=== PATIENT | female | born 1950 | race Caucasian/White ===

== ENCOUNTER → 2017-01-23 | Day surgery (SDC) | payer MEDICARE, OTHER ==
[~2017-01-23] VITALS: Ht 149.9 cm; Wt 102.5 kg
[2017-01-23 09:04] LABS: HCT 37.9 % (37.0-47.0); HGB 12.3 g/dl (12.5-16.0); MCH 31.7 pg (25.0-31.0); MCHC 32.5 g/dL (32.0-36.0); MCV 97.7 fL (78.0-100.0); MPV 10.2 fL (6.0-9.5); RBC 3.88 M/uL (4.20-5.40); RDW 15.4 % (11.5-14.0); WBC 11.3 K/uL (4.0-10.5)
[2017-01-23 09:06] LABS: ALBUMIN 3.9 g/dL (3.4-4.8); BILIRUBIN - TOTAL 0.6 mg/dL (0.1-1.0); CREATININE 0.6 mg/dL (0.5-1.0); GLOBULIN (CALCULATION) 3.2 g/dL (2.2-4.2); POTASSIUM 3.9 mmol/L (3.5-5.1); TOTAL PROTEIN 7.1 g/dL (6.4-8.3)
== END | disposition home or self-care (01) ==
LOC: FAS 08:25
PROVIDERS: Surgery
DX: Z12.11 Encounter for screening for malignant neoplasm of colon (principal); K57.30 Diverticulosis of large intestine without perforation or abscess without bleeding; K58.9 Irritable bowel syndrome, unspecified; D64.9 Anemia, unspecified; I10 Essential (primary) hypertension; I42.2 Other hypertrophic cardiomyopathy; E78.5 Hyperlipidemia, unspecified; J45.909 Unspecified asthma, uncomplicated; J44.0 Chronic obstructive pulmonary disease with (acute) lower respiratory infection; J20.9 Acute bronchitis, unspecified; G47.30 Sleep apnea, unspecified; F41.8 Other specified anxiety disorders; E66.9 Obesity, unspecified; Z68.42 Body mass index [BMI] 45.0-49.9, adult; M19.90 Unspecified osteoarthritis, unspecified site; M85.80 Other specified disorders of bone density and structure, unspecified site; Z99.89 Dependence on other enabling machines and devices; Z88.0 Allergy status to penicillin; Z88.5 Allergy status to narcotic agent; Z91.040 Latex allergy status; Z98.41 Cataract extraction status, right eye; Z98.42 Cataract extraction status, left eye; Z96.659 Presence of unspecified artificial knee joint; Z95.5 Presence of coronary angioplasty implant and graft; Z90.49 Acquired absence of other specified parts of digestive tract; Z90.710 Acquired absence of both cervix and uterus; Z90.721 Acquired absence of ovaries, unilateral; Z81.8 Family history of other mental and behavioral disorders; Z82.49 Family history of ischemic heart disease and other diseases of the circulatory system; Z81.1 Family history of alcohol abuse and dependence; Z80.3 Family history of malignant neoplasm of breast; Z79.899 Other long term (current) drug therapy
CPT/HCPCS: 36415; 80053; J2405; J2704

== ENCOUNTER 2020-09-23 14:57 | Emergency (ER) | payer MEDICARE, OTHER ==
[~2020-09-23 14:57] MED LIST: 24HOUR ALLERGY10 MG PO; ADVAIR 500-501 EACH INH; ADVIL200 M1 PO; ATROVENT (00.2 MG/ML INH; COMBIVENT RESPIM4 GM INH; DITROPAN5 MG PO; FLEXERIL10 MG PO; MOBIC15 MG PO; NAPROXEN500 MG PO; OXYCONTIN 10MG10 MG PO; PERCOCET 5-3251 EACH PO; PREDNISONE5 MG PO; PRINIVIL10 MG PO; TRAMADOL HCL50 MG PO; ULTRAM50 MG PO; VENTOLIN (2.5 MG/3 M INH; VERAPAMIL ER120 MG PO; ZANAFLEX2 MG PO
[2020-09-23 17:56] LABS: BASOPHIL 0.9 % (0-2); EOSINOPHIL 2.8 % (0-7); HCT 38.5 % (37.0-47.0); HGB 12.6 g/dl (12.5-16.0); LYMPHOCYTE 22.8 % (15-48); MCH 34.5 pg (25.0-31.0); MCHC 32.7 g/dL (32.0-36.0); MCV 105.5 fL (78.0-100.0); MONOCYTE 5.8 % (0-12); MPV 9.8 fL (6.0-9.5); NEUTROPHIL 67.4 % (41-80); NRBC 0; PLT 307 K/uL (150-400); RBC 3.65 M/uL (4.20-5.40); RDW 13.9 % (11.5-14.0); WBC 14.5 K/uL (4.0-10.5)
[2020-09-23 18:10] LABS: INR 1.1 (0.9-1.2); PROTHROMBIN TIME 13.5 SECONDS (11.4-13.6); PTT 29.2 SECONDS (22.2-34.7)
[2020-09-23 18:16] LABS: ALBUMIN 3.4 g/dL (3.4-5.0); BILIRUBIN - TOTAL 0.3 mg/dL (0.2-1.0); BUN/CREAT RATIO (CALC) 16.9 RATIO; CREATININE 0.77 mg/dL (0.51-0.95); GLOBULIN (CALCULATION) 4.2 g/dL; MAGNESIUM 2.3 mg/dL (1.8-2.4); POTASSIUM 4.3 mmol/L (3.5-5.1); TOTAL PROTEIN 7.6 g/dL (6.4-8.2)
[2020-09-23 18:20] LABS: PRO-BNP 28 pg/mL (<125)
[2020-09-23 19:13] LABS: BILIRUBIN NEGATIVE (NEGATIVE); BLOOD NEGATIVE Ery/uL (NEGATIVE); CLARITY CLEAR (CLEAR); COLOR YELLOW (YELLOW); GLUCOSE (U) NORMAL (NORMAL); LEUKOCYTES NEGATIVE Leu/uL (NEGATIVE); NITRITE NEGATIVE (NEGATIVE); PROTEIN NEGATIVE (NEGATIVE); UROBILINOGEN 0.2 mg/dL (0.2-1.0); pH 6.5 (5.0-9.0)
[2020-09-23] MEDS ORDERED: HYDROCODON-ACE1 EAC2 PO (22:36)
[2020-09-23] MEDS ORDERED: ONDANSETRON ODT4 MG PO (22:36)
[2021-03-03] MEDS ORDERED: MYRBETRIQ25 MG PO (14:49)
[2021-03-11] MEDS ORDERED: OXYGEN (09:39)
== END 2020-09-23 23:15 | disposition home or self-care (01) ==
LOC: FER 14:57
PROVIDERS: Emergency Medicine
DX: M25.552 Pain in left hip (principal); R10.9 Unspecified abdominal pain; I10 Essential (primary) hypertension; J44.9 Chronic obstructive pulmonary disease, unspecified; Z98.890 Other specified postprocedural states; Z96.653 Presence of artificial knee joint, bilateral
CPT/HCPCS: 36415; 71275; 75635; 80053; 81003; 83690; 83735; 83880; 84484; 85025; 85610; 85730; 93005; J2270; J2405; J7030; Q9967

== ENCOUNTER → 2021-03-11 | Day surgery (SDC) | payer MEDICARE, OTHER ==
[~2021-03-11] VITALS: Ht 149.9 cm; Wt 105.7 kg
[~2021-03-11] MED LIST changes: +DEXAMETHASONE 2M2 MG PO; +HYDROCODON-ACE1 EAC2 PO; +MYRBETRIQ25 MG PO; +ONDANSETRON ODT4 MG PO; +OXYGEN; +SINGULAIR10 MG PO
[2021-03-11 09:48] LABS: HCT 37.6 % (37.0-47.0); HGB 12.7 g/dl (12.5-16.0); MCH 34.9 pg (25.0-31.0); MCHC 33.8 g/dL (32.0-36.0); MCV 103.3 fL (78.0-100.0); MPV 10.2 fL (6.0-9.5); RBC 3.64 M/uL (4.20-5.40); RDW 13.2 % (11.5-14.0); WBC 14.8 K/uL (4.0-10.5)
[2021-03-11 10:06] LABS: ALBUMIN 3.2 g/dL (3.4-5.0); BILIRUBIN - TOTAL 0.4 mg/dL (0.2-1.0); BUN/CREAT RATIO (CALC) 21.5 RATIO; CREATININE 0.65 mg/dL (0.51-0.95); GLOBULIN (CALCULATION) 4.5 g/dL; POTASSIUM 3.6 mmol/L (3.5-5.1); TOTAL PROTEIN 7.7 g/dL (6.4-8.2)
== END | disposition home or self-care (01) ==
LOC: FAS 08:49
PROVIDERS: Surgery
DX: K56.609 Unspecified intestinal obstruction, unspecified as to partial versus complete obstruction (principal); K57.30 Diverticulosis of large intestine without perforation or abscess without bleeding; K59.00 Constipation, unspecified; D64.9 Anemia, unspecified; F41.9 Anxiety disorder, unspecified; J45.909 Unspecified asthma, uncomplicated; I65.23 Occlusion and stenosis of bilateral carotid arteries; I10 Essential (primary) hypertension; J44.9 Chronic obstructive pulmonary disease, unspecified; F32.9 Major depressive disorder, single episode, unspecified; E78.5 Hyperlipidemia, unspecified; I42.2 Other hypertrophic cardiomyopathy; G43.909 Migraine, unspecified, not intractable, without status migrainosus; M06.9 Rheumatoid arthritis, unspecified; Z88.5 Allergy status to narcotic agent; Z88.8 Allergy status to other drugs, medicaments and biological substances; E66.01 Morbid (severe) obesity due to excess calories
CPT/HCPCS: 36415; 80053; J1610; J2704; J7120

== ENCOUNTER 2021-04-29 18:21 | Inpatient (IN) | payer MEDICARE, OTHER ==
[~2021-04-29] VITALS: Ht 149.9 cm; Wt 102.6 kg
[~2021-04-29 18:21] MED LIST changes: -DEXAMETHASONE 2M2 MG PO; -SINGULAIR10 MG PO
[2021-04-29 19:18] LABS: INFLUENZA A NAA NEGATIVE (NEGATIVE)
[2021-04-29 19:20] LABS: CORONAVIRUS 2019 SARS-COV-2 POSITIVE (NEGATIVE)
[2021-04-29 19:44] LABS: BASOPHIL 0.2 % (0-2); EOSINOPHIL 0 % (0-7); HCT 37.4 % (37.0-47.0); HGB 12.5 g/dl (12.5-16.0); LYMPHOCYTE 17.8 % (15-48); MCHC 33.4 g/dL (32.0-36.0); MCV 101.6 fL (78.0-100.0); MONOCYTE 3.5 % (0-12); MPV 10.6 fL (6.0-9.5); NRBC 0; PLT 218 K/uL (150-400); RBC 3.68 M/uL (4.20-5.40); WBC 8.3 K/uL (4.0-10.5)
[2021-04-29 19:45] LABS: NEUTROPHIL 78.1 % (41-80)
[2021-04-29 19:57] LABS: ALBUMIN 2.9 g/dL (3.4-5.0); BILIRUBIN - TOTAL 0.6 mg/dL (0.2-1.0); BUN/CREAT RATIO (CALC) 12.9 RATIO; CREATININE 0.85 mg/dL (0.51-0.95); GLOBULIN (CALCULATION) 3.9 g/dL; TOTAL PROTEIN 6.8 g/dL (6.4-8.2)
[2021-04-29] MEDS ORDERED: SINGULAIR10 MG PO (22:30)
[2021-04-30 04:49] LABS: BASOPHIL 0.1 % (0-2); EOSINOPHIL 0 % (0-7); HCT 37.4 % (37.0-47.0); HGB 12.4 g/dl (12.5-16.0); LYMPHOCYTE 9.6 % (15-48); MCH 33.7 pg (25.0-31.0); MCHC 33.2 g/dL (32.0-36.0); MCV 101.6 fL (78.0-100.0); MONOCYTE 1.1 % (0-12); MPV 10.3 fL (6.0-9.5); NRBC 0; PLT 208 K/uL (150-400); RBC 3.68 M/uL (4.20-5.40); RDW 12.8 % (11.5-14.0); WBC 7.1 K/uL (4.0-10.5)
[2021-04-30 05:07] LABS: ALBUMIN 2.7 g/dL (3.4-5.0); BILIRUBIN - TOTAL 0.5 mg/dL (0.2-1.0); BUN/CREAT RATIO (CALC) 17.2 RATIO; CREATININE 0.87 mg/dL (0.51-0.95); GLOBULIN (CALCULATION) 4.6 g/dL; POTASSIUM 4.1 mmol/L (3.5-5.1); TOTAL PROTEIN 7.3 g/dL (6.4-8.2)
[2021-04-30 05:26] LABS: NEUTROPHIL 88.6 % (41-80)
[2021-05-01 05:16] LABS: BASOPHIL 0.2 % (0-2); HCT 37.9 % (37.0-47.0); HGB 12.4 g/dl (12.5-16.0); LYMPHOCYTE 14.8 % (15-48); MCH 33.3 pg (25.0-31.0); MCHC 32.7 g/dL (32.0-36.0); MCV 101.9 fL (78.0-100.0); MONOCYTE 3.8 % (0-12); MPV 10.8 fL (6.0-9.5); PLT 247 K/uL (150-400); RBC 3.72 M/uL (4.20-5.40); RDW 12.8 % (11.5-14.0); WBC 12.19 K/uL (4.0-10.5)
[2021-05-01 05:34] LABS: ALBUMIN 2.6 g/dL (3.4-5.0); BILIRUBIN - TOTAL 0.4 mg/dL (0.2-1.0); BUN/CREAT RATIO (CALC) 25.9 RATIO; CREATININE 0.81 mg/dL (0.51-0.95); GLOBULIN (CALCULATION) 3.8 g/dL; POTASSIUM 4.5 mmol/L (3.5-5.1); TOTAL PROTEIN 6.4 g/dL (6.4-8.2)
--- NOTE | 2021-05-02 14:11 | NUR ---
05/02/21 Ms. Brennan lives at [facility]. She has home 02 at and a rw. services are not current. Will monitor for discharge planning needs.
[2021-05-03 08:36] LABS: BASOPHIL 0.3 % (0-2); EOSINOPHIL 0 % (0-7); HCT 36.4 % (37.0-47.0); HGB 12.1 g/dl (12.5-16.0); LYMPHOCYTE 31.8 % (15-48); MCH 33.9 pg (25.0-31.0); MCHC 33.2 g/dL (32.0-36.0); MONOCYTE 8.8 % (0-12); MPV 10.6 fL (6.0-9.5); NEUTROPHIL 56.8 % (41-80); NRBC 0; PLT 334 K/uL (150-400); RBC 3.57 M/uL (4.20-5.40); RDW 13.1 % (11.5-14.0); WBC 11.5 K/uL (4.0-10.5)
[2021-05-03 09:07] LABS: ALBUMIN 2.5 g/dL (3.4-5.0); BILIRUBIN - TOTAL 0.4 mg/dL (0.2-1.0); BUN/CREAT RATIO (CALC) 25.4 RATIO; C-REACTIVE PROTEIN 2.1 mg/dL (<=0.90); CREATININE 0.71 mg/dL (0.51-0.95); GLOBULIN (CALCULATION) 4.1 g/dL; POTASSIUM 4.1 mmol/L (3.5-5.1); TOTAL PROTEIN 6.6 g/dL (6.4-8.2)
--- NOTE | 2021-05-04 13:33 | NUR ---
05/04/21 Ms. Brennan's granddaughter will transport her home. Bimal Flores arranged [facility] and [facility] provide a travel 02 tank. - Report given to MS SANDRO Rivera.
[2021-05-04] MEDS ORDERED: DEXAMETHASONE 2M2 MG PO (15:16)
== END 2021-05-04 14:50 | disposition home health service (06) | DRG 177 ==
LOC: FER 18:21 → FTCU 20:14 → FMS 05-02 10:28
PROVIDERS: Internal Medicine; Nurse Practitioner; Physician Assistant; ADMIT Internal Medicine
PROC: 8E0ZXY6 Isolation (ICD-10-PCS; principal; 2021-04-29)
PROC: XW033E5 Introduction of Remdesivir Anti-infective into Peripheral Vein, Percutaneous Approach, New Technology Group 5 (ICD-10-PCS; 2021-04-29)
PROC: XW0DXM6 Introduction of Baricitinib into Mouth and Pharynx, External Approach, New Technology Group 6 (ICD-10-PCS; 2021-04-29)
DX: U07.1 COVID-19 (principal); J12.82 Pneumonia due to coronavirus disease 2019; J96.21 Acute and chronic respiratory failure with hypoxia; J45.901 Unspecified asthma with (acute) exacerbation; G47.33 Obstructive sleep apnea (adult) (pediatric); I10 Essential (primary) hypertension; Z96.653 Presence of artificial knee joint, bilateral; F32.9 Major depressive disorder, single episode, unspecified; D64.9 Anemia, unspecified; Z99.81 Dependence on supplemental oxygen; Z90.710 Acquired absence of both cervix and uterus; Z86.11 Personal history of tuberculosis; Z88.5 Allergy status to narcotic agent; Z88.6 Allergy status to analgesic agent; Z88.8 Allergy status to other drugs, medicaments and biological substances; Z91.040 Latex allergy status; Z98.890 Other specified postprocedural states; Z79.51 Long term (current) use of inhaled steroids; Z79.899 Other long term (current) drug therapy
CPT/HCPCS: 36415; 71045; 80053; 82728; 84145; 85025; 86140; 94640; 94667; 94668; C9399; J1100; J1650; J2405; J2930; J7040; J7050; U0002

== ENCOUNTER 2022-03-31 13:33 | Inpatient (IN) | payer MEDICARE, OTHER ==
[~2022-03-31] VITALS: Ht 149.9 cm; Wt 102.5 kg
[~2022-03-31 13:33] MED LIST changes: +DEXAMETHASONE 2M2 MG PO; +GABAPENTIN100 MG PO; +SINGULAIR10 MG PO
[2022-03-31 14:02] LABS: BASOPHIL 0.2 % (0-2); EOSINOPHIL 0 % (0-7); HCT 37.6 % (37.0-47.0); HGB 12.7 g/dl (12.5-16.0); LYMPHOCYTE 7.5 % (15-48); MCH 34.9 pg (25.0-31.0); MCHC 33.8 g/dL (32.0-36.0); MCV 103.3 fL (78.0-100.0); MONOCYTE 2.5 % (0-12); MPV 10.2 fL (6.0-9.5); NEUTROPHIL 88.7 % (41-80); NRBC 0; PLT 360 K/uL (150-400); RBC 3.64 M/uL (4.20-5.40); RDW 13.6 % (11.5-14.0); WBC 27.5 K/uL (4.0-10.5)
[2022-03-31 14:06] LABS: INR 1.06 (0.9-1.2); PROTHROMBIN TIME 13.5 SECONDS (11.9-13.9); PTT 25.3 SECONDS (24.9-34.6)
[2022-03-31 14:41] LABS: ALBUMIN 3.4 g/dL (3.4-5.0); BILIRUBIN - TOTAL 0.3 mg/dL (0.2-1.0); BUN/CREAT RATIO (CALC) 29.9 RATIO; CREATININE 0.67 mg/dL (0.51-0.95); GLOBULIN (CALCULATION) 4.2 g/dL; POTASSIUM 3.8 mmol/L (3.5-5.1); TOTAL PROTEIN 7.6 g/dL (6.4-8.2)
[2022-03-31 15:16] LABS: LACTIC ACID 3.7 mmol/L (0.4-1.9)
[2022-03-31] MEDS ORDERED: SINGULAIR10 MG PO (18:09)
[2022-03-31] MEDS ORDERED: COMBIVENT RESPIM4 GM PO (18:11)
[2022-03-31] MEDS ORDERED: ATROVENT HFA12.9 GM INH (18:12)
[2022-03-31] MEDS ORDERED: MYRBETRIQ25 MG PO (18:13)
[2022-03-31] MEDS ORDERED: FLUTICASONE-SA1 EAC5 PO (18:13)
[2022-03-31] MEDS ORDERED: NORVASC5 MG PO (18:14)
[2022-03-31] MEDS ORDERED: FLEXERIL5 MG PO (18:15)
--- NOTE | 2022-04-01 03:11 | NUR ---
PHONED X2 FOR GREEN SHEET R/T [facility], STATES WILL LOOK FOR IT AND SEND IF LOCATED.
[2022-04-01 06:21] LABS: BASOPHIL 0.1 % (0-2); EOSINOPHIL 0 % (0-7); HCT 35.4 % (37.0-47.0); HGB 11.7 g/dl (12.5-16.0); LYMPHOCYTE 9.1 % (15-48); MCH 34.5 pg (25.0-31.0); MCHC 33.1 g/dL (32.0-36.0); MCV 104.4 fL (78.0-100.0); MONOCYTE 1.5 % (0-12); NEUTROPHIL 88.6 % (41-80); NRBC 0; PLT 300 K/uL (150-400); RBC 3.39 M/uL (4.20-5.40); RDW 13.8 % (11.5-14.0); WBC 24.9 K/uL (4.0-10.5)
[2022-04-01 07:25] LABS: BUN/CREAT RATIO (CALC) 27.9 RATIO; CREATININE 0.61 mg/dL (0.51-0.95); POTASSIUM 4.2 mmol/L (3.5-5.1)
--- NOTE | 2022-04-01 18:27 | NUR ---
1810 CALLED OUT TO REPORT THAT SHE WAS HAVING CHEST PAINS, CHEST TIGHTNESS AND PRESSURE TO THE CENTER OF THE CHEST. VITAL SIGNS B/P 164/67, HR 88, RESP 20, O2 SAT 98% ON 2LNC. DR. SLAUGHTER HAS BEEN NOTIFED. 1815 EKG HAS BEEN DONE, RESULT IS NORMAL SINUS. 1824 NEW ORDERS TO GIVE MORPHINE 2MG IV AND TO MONITOR TELEMTERY MONITOR HEART RATE AT THIS TIME IS 82. ALSO NEW ORDERS TO HAVE SERIAL TROPONINS TO BE DRAWN TO CHECK THE TROPONIN LEVELS. 1830 REPORTS THAT THE PAIN MEDICATIONS HAS STARTED TO HELP SOME. WILL CONTINUE TO MONITOR FOR CHANGES.
[2022-04-03 06:28] LABS: BASOPHIL 0.6 % (0-2); EOSINOPHIL 0 % (0-7); HCT 38.8 % (37.0-47.0); HGB 12.7 g/dl (12.5-16.0); LYMPHOCYTE 14.8 % (15-48); MCH 34.6 pg (25.0-31.0); MCHC 32.7 g/dL (32.0-36.0); MCV 105.7 fL (78.0-100.0); MONOCYTE 2.9 % (0-12); MPV 10.4 fL (6.0-9.5); NRBC 0; PLT 296 K/uL (150-400); RBC 3.67 M/uL (4.20-5.40); RDW 13.8 % (11.5-14.0); WBC 17.5 K/uL (4.0-10.5)
[2022-04-03 06:53] LABS: BUN/CREAT RATIO (CALC) 28.4 RATIO; CREATININE 0.67 mg/dL (0.51-0.95); POTASSIUM 3.8 mmol/L (3.5-5.1)
[2022-04-03] MEDS ORDERED: PREDNISONE 20MG20 MG PO (10:11)
--- NOTE | 2022-04-03 15:28 | NUR ---
04/03/22 Ms. Brennan lives at [facility]. She has a C-PAP, 02 at 2 L, portable, and rw. Wendi Arias = PCP. - No interventions are needed at this time.
== END 2022-04-03 13:30 | disposition home or self-care (01) | DRG 871 ==
LOC: FER 13:33 → FMS 15:55
PROVIDERS: Emergency Medicine; ADMIT Internal Medicine
PROC: 3E03329 Introduction of Other Anti-infective into Peripheral Vein, Percutaneous Approach (ICD-10-PCS; principal; 2022-03-31)
PROC: 3E0333Z Introduction of Anti-inflammatory into Peripheral Vein, Percutaneous Approach (ICD-10-PCS; 2022-03-31)
PROC: 8E0ZXY6 Isolation (ICD-10-PCS; 2022-03-31)
PROC: XW033E5 Introduction of Remdesivir Anti-infective into Peripheral Vein, Percutaneous Approach, New Technology Group 5 (ICD-10-PCS; 2022-03-31)
DX: A41.89 Other specified sepsis (principal); J12.82 Pneumonia due to coronavirus disease 2019; U07.1 COVID-19; J15.9 Unspecified bacterial pneumonia; J45.901 Unspecified asthma with (acute) exacerbation; Z68.42 Body mass index [BMI] 45.0-49.9, adult; I10 Essential (primary) hypertension; F32.A Depression, unspecified; F41.9 Anxiety disorder, unspecified; E66.9 Obesity, unspecified; G47.33 Obstructive sleep apnea (adult) (pediatric); R73.9 Hyperglycemia, unspecified; Z96.653 Presence of artificial knee joint, bilateral; Z90.710 Acquired absence of both cervix and uterus; Z99.81 Dependence on supplemental oxygen; Z82.49 Family history of ischemic heart disease and other diseases of the circulatory system; Z80.3 Family history of malignant neoplasm of breast; Z88.5 Allergy status to narcotic agent; Z91.040 Latex allergy status; Z79.899 Other long term (current) drug therapy; Z98.41 Cataract extraction status, right eye; Z98.42 Cataract extraction status, left eye
CPT/HCPCS: 36415; 71045; 71275; 80048; 80053; 82728; 83036; 83605; 84145; 84484; 85025; 85610; 85730; 87040; 93005; 94640; C9399; J0456; J0696; J1100; J1650; J2060; J2270; J2920; J7030; J7050; J8540; Q9967; U0002